=== PATIENT | female | born 1960 | race Caucasian/White ===

== ENCOUNTER 2016-09-17 20:17 | Emergency (ER) | payer BC ==
[2009-08-14 06:28] VITALS: BMI 28.2
== END 2016-09-18 | disposition home or self-care (01) ==
LOC: D.ER 20:17
DX: S00.83XA Contusion of other part of head, initial encounter (principal); W19.XXXA Unspecified fall, initial encounter; Y93.89 Activity, other specified; Y92.89 Other specified places as the place of occurrence of the external cause